=== PATIENT | female | born 1960 | race Caucasian/White ===

== ENCOUNTER → 2019-01-28 | Outpatient (REF) | payer OTHER ==
[2019-02-03 14:09] LABS: HPV HYBRID CAPTURE II Negative (Negative)
== END ==
LOC: M LAB LCGH 11:32
PROVIDERS: ATTEND Nurse Practitioner Adult Health
DX: Z12.4 Encounter for screening for malignant neoplasm of cervix (principal); R87.610 Atypical squamous cells of undetermined significance on cytologic smear of cervix (ASC-US); N85.8 Other specified noninflammatory disorders of uterus

== ENCOUNTER → 2019-07-01 | Outpatient (REF) | LOC: M LAB LCGH 14:05 | PROVIDERS: ATTEND Physician Assistant | DX: L57.0 Actinic keratosis (principal); D22.5 Melanocytic nevi of trunk ==

== ENCOUNTER → 2021-07-23 | Outpatient (CLI) | payer OTHER ==
[~2021-07-23] MED LIST: D31000TA2 PO; ESTR1TAB PO; PROG1CAP8 PO; VITA-243 PO
== END ==
LOC: M LABSMTC 10:49
PROVIDERS: ATTEND Anesthesiology
DX: Z01.812 Encounter for preprocedural laboratory examination (principal); Z20.822 Contact with and (suspected) exposure to COVID-19

== ENCOUNTER 2021-07-27 06:52 | Day surgery (SDC) | payer OTHER ==
[~2021-07-27] VITALS: Ht 160 cm; Wt 49.0 kg
[~2021-07-27 06:52] MED LIST changes: +NS 1,000 ML IV ONE
--- OUTSIDE RECORDS SUMMARY | 2021-07-27 06:58 | CCD | Continuity of Care Document ---
Author Author Cristóbal MELÉNDEZ [facility] Organization Unknown Address [address], [address] [place] [address] Phone [phone] Care Team Providers Care Department Head Name Role Phone Nixon Hunter M.D. AUTM [phone] Problems Description No Active Problems Social History Type Date Description Comments Sex Unknown ETOH Use 2-3 A Week Tobacco Use Start: Unknown Light tobacco smoker (10 or fewe r cigarettes/day) 1-2 packs per week Allergies and adverse reactions Description No Known Drug Allergies Medications Active Medications SIG Qnty Indications Ordering Provide r Date Miralax 17GM/Scoop Powder use as instructed by doctor for bowel prep 510gm R19.5 Damien Gorman MD 06/15/[address] take 4 tabs by mouth prior to procedure per instructions. 4tabs R19.5 Damien Gorman MD 06/15/2021 Progesterone 100mg Capsules D aily Unknown Estradiol 0.5mg Tablets once daily Unknown Vitamin D3 Maximum Strength 125mcg (5000 Ut) Capsules Daily Unknown Vitamin C 500mg Tablets Daily Unknown Tums Ultra 1000 1000mg Chewtabs 2 Daily Unknown Immunizations Description No Information Available Vital Signs Date Vital Result Comment 06/15/2021 9:18am BP Systolic 128 mmHg BP Diastolic 84 mmHg Height 63 inches 5'3" Weight 115.00 lb BMI (Body Mass Index) 20.4 kg/m2 [place] Body Weight 115 lb Weight 52.164 kg BSA (Body Surface Area) 1.53 m2 Results Test Acquired Date Facility Test Result H/L Range Note CBC With Auto Diff 06/18/2021 [facility] [address] [place] [address] [phone] WBC # Bld Auto 6.7 10*3/uL Normal 4.45-10.71 1 RBC # Bld Auto 4.45 10*6/uL Normal 4.20-5.40 Hgb Bld-sCnc 14.8 g/dL Normal 10.7-15.4 Hct VFr Bld Auto 43.2 % Normal 37-47 MCV BldCo Auto 97 fL High 80-96 MCH RBC Qn Auto 33 pg High 27-31 MCHC BldCo-mCnc 34 g/dL Normal 33-37 RDW RBC Auto 13 % Normal 11-15 Platelet # Bld Auto 323 10*3/uL Normal 130-472 PMV Bld 9.1 fL Normal 9.1-13.1 Neutrophils/leuk NFr Bld Auto 56.8 % Normal 41-77 Neutrophils # Bld Auto 3.8 U Normal 1.7-7.6 Lymphocytes/leuk NFr Bld Auto 34.4 % Normal 14-46 Lymphocytes # Bld Auto 2.3 U Normal 0.6-4.6 Monocytes/leuk NFr Bld Auto 6.9 % Normal 4-12 Monocytes # Bld Auto 0.5 U Normal 0.2-1.2 Eosinophil/leuk NFr Bld Auto 0.9 % Normal 0-7 Eosinophil # Bld Auto 0.1 U Normal 0.0-0.5 Basophils/leuk NFr Bld Auto 0.6 % Normal 0.4-1.3 Basophils # Bld Auto 0.0 U Normal 0.0-0.2 Nucleated Red Blood Cell 0 % Nucleated Red Blood Cell# 0 U Imm Granulocytes Bld Ql Auto 0.4 Normal 0-2 Imm Granulocytes # Bld Auto 0.0 U Normal 0-0.1 Manual diff Bld NO 2 1 R19.5 2 06/29/21 (FriJun 29) 02:19 P M KATERINE MELÉNDEZ No anemia noted. Procedures Description No Information Available Medical Devices Description No Information Available Encounters Description No Information Available Assessments Date Code Description Provider 06/15/2021 R19.5 Other fecal abnormalities DEVAUGHN Allen Plan of Treatment 06/15/2021 - DEVAUGHN Vigil* R19.5 Other fecal abnormalities * * New Medication:* Miralax 17 GM/Scoop * Dulcolax 5 mg * New Labs:* Complete Blood Count, Ordered: 06/15/21 * New Orders:* Colonoscopy, Ordered: 06/15/21 * Comments:* Will arrange for colonoscopy. Reviewed risks and benefits of the procedure, as well as other options, with the patient. Bowel prep procedure was discussed with patient, as well as risks and side effects associated with the bowel prep. Patient verbalized understanding of all of the above and is in agreement to proceed. Patient will seek medical attention for any acute changes. Will monitor. * Follow up:* As scheduled, sooner if needed. Functional Status Description No Information Available Mental Status Description No Information Available Referrals Refer to Reason for Referral Status Appt Date Antolin Magdaleno M.D. [employer]IT[employer] Scheduled 06/15/2021 [facility] [address], [address] [place], [place] [id number] [phone]
--- OUTSIDE RECORDS SUMMARY | 2021-07-27 06:58 | CCD ---
Author Author [facility] Organization [facility] Address Unknown Phone Unavailable Care Team Providers Care [employer]sembler [employer] Name Role Phone Charlebois, A Juli RPA C Unavailable Unavailable Charlebois, A Juli RPA C Unavailable Unavailable Charlebois, A Juli RPA C Unavailable Unavailable Charlebois, A Juli RPA C Unavailable Unavailable Charlebois, A Juli RPA C Unavailable Unavailable Charlebois, A Juli RPA C Unavailable Unavailable Charlebois, A Juli RPA C Unavailable Unavailable Charlebois, A Juli RPA C Unavailable Unavailable Charlebois, A Juli RPA C Unavailable Unavailable Charlebois, A Juli RPA C Unavailable Unavailable Charlebois, A Juli RPA C Unavailable Unavailable Charlebois, A Juli RPA C Unavailable Unavailable Charlebois, A Juli RPA C Unavailable Unavailable Charlebois, A Juli RPA C Unavailable Unavailable Charlebois, A Juli RPA C Unavailable Unavailable Charlebois, A Juli RPA C Unavailable Unavailable Charlebois, A Juli RPA C Unavailable Unavailable Charlebois, A Juli RPA C Unavailable Unavailable Charlebois, A Juli RPA C Unavailable Unavailable Charlebois, A Juli RPA C Unavailable Unavailable Charlebois, A Juli RPA C Unavailable Unavailable Charlebois, A Juli RPA C Unavailable Unavailable Charlebois, A Juli RPA C Unavailable Unavailable Charlebois, A Juli RPA C Unavailable Unavailable Charlebois, A Juli RPA C Unavailable Unavailable Charlebois, A Juli RPA C Unavailable Unavailable Charlebois, A Juli RPA C Unavailable Unavailable Charlebois, A Juli RPA C Unavailable Unavailable Charlebois, A Juli RPA C Unavailable Unavailable Charlebois, A Juli RPA C Unavailable Unavailable Charlebois, A Juli RPA C Unavailable Unavailable Charlebois, A Juli RPA C Unavailable Unavailable Charlebois, A Juli RPA C Unavailable Unavailable Doctor Provided, Family PHYS No Family Unavailable U navailable Hunter II, A Nixon LIEBERMAN Unavailable Unavailable Hunter II, A Nixon LIEBERMAN Unavailable Unavailable Hunter II, A Nixon LIEBERMAN Unavailable Unavailable Hunter II, A Nixon LIEBERMAN Unavailable Unavailable Hunter II, A Nixon LIEBERMAN Unavailable Unavailable Hunter II, A Nixon LIEBERMAN Unavailable Unavailable Hunter II, A Nixon LIEBERMAN Unavailable Unavailable Hunter II, A Nixon LIEBERMAN Unavailable Unavailable Hunter II, A Nixon LIEBERMAN Unavailable Unavailable Hunter II, A Nixon LIEBERMAN Unavailable Unavailable Hunter II, A Nixon LIEBERMAN Unavailable Unavailable Hunter II, A Nixon LIEBERMAN Unavailable Unavailable Hunter II, A Nixon LIEBERMAN Unavailable Unavailable Hunter II, A Nixon LIEBERMAN Unavailable Unavailable Hunter II, A Nixon LIEBERMAN Unavailable Unavailable Hunter II, A Nixon LIEBERMAN Unavailable Unavailable Hunter II, A Nixon LIEBERMAN Unavailable Unavailable Hunter II, A Nixon LIEBERMAN Unavailable Unavailable Hunter II, A Nixon LIEBERMAN Unavailable Unavailable Hunter II, A Nixon LIEBERMAN Unavailable Unavailable Hunter II, A Nixon LIEBERMAN Unavailable Unavailable Hunter II, A Nixon LIEBERMAN Unavailable Unavailable Hunter II, A Nixon MD Unavailable Unavailable Hunter II, A Nixon MD Unavailable Unavailable Hunter II, A Nixon MD Unavailable Unavailable Hunter II, A Nixon MD Unavailable Unavailable Hunter II, A Nixon MD Unavailable Unavailable Hunter II, A Nixon MD Unavailable Unavailable Hunter II, A Nixon MD Unavailable Unavailable Hunter II, A Nixon MD Unavailable Unavailable Hunter II, A Nixon MD Unavailable Unavailable Hunter II, A Nixon MD Unavailable Unavailable Hunter II, A Nixon MD Unavailable Unavailable Hunter II, A Nixon MD Unavailable Unavailable Hunter II, A Nixon MD Unavailable Unavailable Hunter II, A Nixon MD Unavailable Unavailable Hunter II, A Nixon MD Unavailable Unavailable Hunter II, A Nixon MD Unavailable Unavailable Hunter II, A Nixon MD Unavailable Unavailable Hunter II, A Nixon MD Unavailable Unavailable Hunter II, A Nixon MD Unavailable Unavailable Hunter II, A Nixon MD Unavailable Unavailable Hunter II, A Nixon MD Unavailable Unavailable Hunter II, A Nixon MD Unavailable Unavailable Hunter II, A Nixon MD Unavailable Unavailable Hunter II, A Nixon MD Unavailable Unavailable Hunter II, A Nixon MD Unavailable Unavailable Hunter II, A Nixon MD Unavailable Unavailable Hunter II, A Nixon MD Unavailable Unavailable Hunter II, A Nixon MD Unavailable Unavailable Hunter II, A Nixon MD Unavailable Unavailable Hunter II, A Nixon MD Unavailable Unavailable Hunter II, A Nixon MD Unavailable Unavailable Hunter II, A Nixon MD Unavailable Unavailable Hunter II, A Nixon MD Unavailable Unavailable Hunter II, A Nixon MD Unavailable Unavailable Re-disclosure Warning The records that you are about to access may contain information from federally-assisted alcohol or drug abuse programs. If such information is present, then the following federally mandated warning applies: This information has been disclosed to you from records protected by federal confidentiality rules (42 CFR part 2). The federal rules prohibit you from making any further disclosure of this information unless further disclosure is expressly permitted by the written consent of the person to whom it pertains or as otherwise permitted by 42 CFR part 2. A general authorization for the release of medical or other information is NOT sufficient for this purpose. The Federal rules restrict any use of the information to criminally investigate or prosecute any alcohol or drug abuse patient.The records that you are about to access may contain highly sensitive health information, the redisclosure of which is protected by Article 27-F of the [facility] Public Health law. If you continue you may have access to information: Regarding HIV / AIDS; Provided by facilities licensed or operated by the [facility] Office of Mental Health; or Provided by the [facility] Office for People With Developmental Disabilities. If such information is present, then the following [facility] mandated warning applies: This information has been disclosed to you from confidential records which are protected by state law. State law prohibits you from making any further disclosure of this information without the specific written consent of the person to whom it pertains, or as otherwise permitted by law. Any unauthorized further disclosure in violation of state law may result in a fine or correction sentence or both. A general authorization for the release of medical or other information is NOT sufficient authorization for further disc losure. Allergies and Adverse Reactions Type Description Substance Reaction Status Data Source(s ) Drug allergy No Known Drug Allergies No Known Drug Allergies [facility] Family History Family Member Name Family Member Gender Family Member Status Date o f Status Description Data Source(s) Unknown Condition [facility] Unknown Condition [facility] Unknown Condition [facility] Unknown Condition [facility] Unknown Condition [facility] Unknown Condition [facility] Unknown Condition [facility] Condition [facility] Unknown Condition [facility] Condition [facility] Condition [facility] Unknown Condition [facility] Unknown Condition [facility] Unknown Condition [facility] Unknown Condition [facility] Encounters Encounter Providers Location Date Indications Data Source(s ) Outpatient Attender: Juli Holcomb 2020 08:15:00 AM EDT R19.5 [facility] R19.5 Outpatient Attender: Nixon Hunter II 04/05/2021 0 7:25:00 AM EDT SCREENING, DENSE TISSUE [facility] SCREENING, DENSE TISSUE Outpatient Attender: Nixon Hunter IIReferrer: No Family Doctor Provided 03/19/2021 10:46:00 AM EDT - 03/19/2021 12:04:00 PM EDT [facility] Immunizations Vaccine Date Status Description Data Source(s) COVID-19 VACCINE Moderna 11/03/2020 12:00:00 AM EST completed [facility] Vaccine Series Complete: YESThis Data wa s Submitted to [facility] Via [employer]. COVID-19 VACCINE Moderna 10/06/2020 12:00:00 AM EST completed [facility] Vaccine Series Complete: NOThis Data was Submitted to [facility] Via [employer]. IIV3. This is one of two codes replacing CVX 15, which is being retired. 06/14/2020 12:00:00 AM EDT completed [facility] Medications Medication Brand Name Start Date Product Form Dose Route Admi nistrative Instructions Pharmacy Instructions Status Indications Reaction Description Data Source(s) 17 gram/dose 06/17/2021 12:00:00 AM EDT powder 510 TAKE BY MOUTH INSTRUCTED BY DOCTOR FOR BOWEL PREP TAKE BY MOUTH INSTRUCTED BY DOCTOR FO Robin BOWEL PREP SOLD: 06/19/2021 [facility] Bisacodyl 5 MG Delayed Release Oral Tablet [Dulcolax] Dulcol ax 06/15/2021 12:00:00 AM EDT ORAL active [facility] ([facility], ) POLYETHYLENE GLYCOL 3350 142 MG/ML Oral Solution [Miralax] M iralax 06/15/2021 12:00:00 AM EDT active [facility] ([facility], ) 100 mg 05/02/2021 12:00:00 AM EDT capsule 30 TAKE ONE CAPSULE BY MOUTH EVERY DAY AT BEDTIME ALONG WITH ESTRADIOL DIRECTED TAKE ONE CAPSULE BY MOUTH EVERY DAY AT BEDTIME ALONG WITH ESTRADIOL DIRECTED SOLD: 07/04/2021 [facility] 100 mg 05/02/2021 12:00:00 AM EDT capsule 30 TAKE ONE CAPSULE BY MOUTH EVERY DAY AT BEDTIME ALONG WITH ESTRADIOL DIRECTED TAKE ONE CAPSULE BY MOUTH EVERY DAY AT BEDTIME ALONG WITH ESTRADIOL DIRECTED SOLD: 06/05/2021 [facility] 100 mg 05/02/2021 12:00:00 AM EDT capsule 30 TAKE ONE CAPSULE BY MOUTH EVERY DAY AT BEDTIME ALONG WITH ESTRADIOL DIRECTED TAKE ONE CAPSULE BY MOUTH EVERY DAY AT BEDTIME ALONG WITH ESTRADIOL DIRECTED SOLD: 05/06/2021 [facility] 0.5 mg 04/23/2021 12:00:00 AM EDT tablet 30 TAKE ONE TABLET BY MOUTH EVERY DAY ALONG WITH PROMETRIUM AT BEDTIME DIRECTED TAKE ONE TABLET BY MOUTH EVERY DAY ALONG WITH PROMETRIUM AT BEDTIME DIRECTED SOLD: 05/06/2021 [facility] 0.5 mg 04/23/2021 12:00:00 AM EDT tablet 30 TAKE ONE TABLET BY MOUTH EVERY DAY ALONG WITH PROMETRIUM AT BEDTIME DIRECTED TAKE ONE TABLET BY MOUTH EVERY DAY ALONG WITH PROMETRIUM AT BEDTIME DIRECTED SOLD: 07/04/2021 [facility] 0.5 mg 04/23/2021 12:00:00 AM EDT tablet 30 TAKE ONE TABLET BY MOUTH EVERY DAY ALONG WITH PROMETRIUM AT BEDTIME DIRECTED TAKE ONE TABLET BY MOUTH EVERY DAY ALONG WITH PROMETRIUM AT BEDTIME DIRECTED SOLD: 06/05/2021 [facility] bazedoxifene 20 MG / Estrogens, Conjugat ed (RETIREMENT) 0.45 MG Oral Tablet Conj Estrogens-Bazedoxifene (Duavee) 0.45-20 mg tablet Conj Estrogens-Bazedoxifene (Duavee) 0.45-20 mg tablet 03/19/2021 11:44:19 AM EDT 1 TAB active [facility] Estrogens, Conjugated (RETIREMENT) 0.45 MG / me droxyprogesterone acetate 1.5 MG Oral Tablet Conj Estrog-Medroxyprogest Vito (Prempro) 0.45-1.5 mg tablet Conj Estrog- Medroxyprogest Vito (Prempro) 0.45-1.5 mg tablet 03/19/2021 11:23:26 AM EDT 1 TAB active [facility] Estrogens, Conjugated (RETIREMENT) 0.45 MG / me droxyprogesterone acetate 1.5 MG Oral Tablet Conj Estrog-Medroxyprogest Vito (Prempro) 0.45-1.5 mg tablet Conj Estrog- Medroxyprogest Vito (Prempro) 0.45-1.5 mg tablet 09/12/2020 09:57:06 AM EST 1 TAB completed [facility] PREMPRO 0.45/1.5 28 Day Pack 0.45-1.5 mg ESTROGEN,CON/M-PROG EST ACET 09/12/2020 12:00:00 AM EST tablet 28 TAKE ONE TABLET BY MOUTH EVERY DAY TAKE ONE TABLET BY MOUTH EVERY DAY SOLD: 12/21/2020 [facility] PREMPRO 0.45/1.5 28 Day Pack 0.45-1.5 mg ESTROGEN,CON/M-PROG EST ACET 09/12/2020 12:00:00 AM EST tablet 28 TAKE ONE TABLET BY MOUTH EVERY DAY TAKE ONE TABLET BY MOUTH EVERY DAY SOLD: 01/21/2021 [facility] PREMPRO 0.45/1.5 28 Day Pack 0.45-1.5 mg ESTROGEN,CON/M-PROG EST ACET 09/12/2020 12:00:00 AM EST tablet 28 TAKE ONE TABLET BY MOUTH EVERY DAY TAKE ONE TABLET BY MOUTH EVERY DAY SOLD: 02/21/2021 [facility] PREMPRO 0.45/1.5 28 Day Pack 0.45-1.5 mg ESTROGEN,CON/M-PROG EST ACET 09/12/2020 12:00:00 AM EST tablet 28 TAKE ONE TABLET BY MOUTH EVERY DAY TAKE ONE TABLET BY MOUTH EVERY DAY SOLD: 03/26/2021 [facility] 0.45-1.5 mg 09/12/2020 12:00:00 AM EST tablet 28 TAKE ONE TABLET BY MOUTH EVERY DAY TAKE ONE TABLET BY MOUTH EVERY DAY SOLD: 09/14/2020 [facility] Estrogens, Conjugated (RETIREMENT) 0.45 MG / me droxyprogesterone acetate 1.5 MG Oral Tablet Conj Estrog-Medroxyprogest Vito (Prempro) 0.45-1.5 mg tablet Conj Estrog- Medroxyprogest Vito (Prempro) 0.45-1.5 mg tablet 02/28/2020 11:41:52 AM EDT 1 TAB completed [facility] 0.45-1.5 mg 02/28/2020 12:00:00 AM EDT tablet 28 TAKE ONE TABLET BY MOUTH EVERY DAY TAKE ONE TABLET BY MOUTH EVERY DAY SOLD: 08/15/2020 [facility] 0.45-1.5 mg 02/28/2020 12:00:00 AM EDT tablet 28 TAKE ONE TABLET BY MOUTH EVERY DAY TAKE ONE TABLET BY MOUTH EVERY DAY SOLD: 06/11/2020 [facility] 0.45-1.5 mg 02/28/2020 12:00:00 AM EDT tablet 28 TAKE ONE TABLET BY MOUTH EVERY DAY TAKE ONE TABLET BY MOUTH EVERY DAY SOLD: 07/18/2020 [facility] bazedoxifene 20 MG / Estrogens, Conjugat ed (RETIREMENT) 0.45 MG Oral Tablet Conj Estrogens-Bazedoxifene (Duavee) 0.45-20 mg tablet Conj Estrogens-Bazedoxifene (Duavee) 0.45-20 mg tablet 01/28/2020 11:28:35 AM EDT 0 completed [facility] Insurance Providers Payer name Policy type / Coverage type Policy ID Covered republican ID Covered republican's relationship to null Policy Null Plan Information [facility] [place] [id number] SP [id number] [facility] [place] [id number] SP [id number] [facility]AN [facility] [place] [id number] SP [id number] [employer] Other 0 [id number] Self 0 [employer] Other 0 [id number] Self 0 Problems, Conditions, and Diagnoses No Information Surgeries/Procedures No Information Results ID Date Data Source [id number] 07/23/2021 11:05:00 AM EST [facility] Name Value Range Interpretation Code Description Data La rce(s) Supporting Document(s) SARS-CoV-2 (COVID-19) RNA [Presence] in Respiratory specimen by JESUS with probe detection Not Detected [facility] This lab was ordered by [facility] and reported by [employer]. ID Date Data Source [id number] 06/18/2021 08:43:00 AM EDT [facility] Name Value Range Interpretation Code Description Data La rce(s) Supporting Document(s) Leukocytes [#/volume] in Blood by Automated count 6.7 10*3/uL 4.45-10 .71 N [facility] Erythrocytes [#/volume] in Blood by Automated count 4.45 10*6/uL 4.20 -5.40 N [facility] Hemoglobin [Moles/volume] in Blood 14.8 g/dL 10.7-15.4 N [facility] Hematocrit [Volume Fraction] of Blood by Automated count 43.2 % 3 7-47 N [facility] Erythrocyte mean corpuscular volume [Ent itic volume] in Cord blood by Automated count 97 fL 80-96 Above high normal [facility] Erythrocyte mean corpuscular hemoglobin [Entitic mass] by Au tomated count 33 pg 27-31 Above high normal [facility] Erythrocyte mean corpuscular hemoglobin concentration [Mass/volume] in Cord blood 34 g/dL 33-37 N [facility] Erythrocyte distribution width [Entitic volume] by Automated count 13 % 11-15 N [facility] Platelets [#/volume] in Blood by Automated count 323 10*3/uL 130-472 N [facility] Platelet mean volume [Entitic volume] in Blood 9.1 fL 9.1-13.1 N [facility] Neutrophils/100 leukocytes in Blood by Automated count 56.8 % 41- 77 N [facility] Neutrophils [#/volume] in Blood by Automated count 3.8 U 1.7-7.6 N [facility] Lymphocytes/100 leukocytes in Blood by Automated count 34.4 % 14- 46 N [facility] Lymphocytes [#/volume] in Blood by Automated count 2.3 U 0.6-4.6 N [facility] Monocytes/100 leukocytes in Blood by Automated count 6.9 % 4-12 N [facility] Monocytes [#/volume] in Blood by Automated count 0.5 U 0.2-1.2 N [facility] Eosinophils/100 leukocytes in Blood by Automated count 0.9 % 0-7 N [facility] Eosinophils [#/volume] in Blood by Automated count 0.1 U 0.0-0.5 N [facility] Basophils/100 leukocytes in Blood by Automated count 0.6 % 0.4-1 .3 N [facility] Basophils [#/volume] in Blood by Automated count 0.0 U 0.0-0.2 N [facility] NUCLEATED RED BLOOD CELL 0 % [facility] NUCLEATED RED BLOOD CELL# 0 U [facility] Immature granulocytes [Presence] in Blood by Automated count 0-2 N [facility] Immature granulocytes [#/volume] in Blood by Automated count 0.0 U 0-0.1 N [facility] Manual Differential panel - Blood NO [facility] ID Date Data Source [id number] 06/18/2021 08:27:00 AM EDT [facility] ([facility], ) Name Value Range Interpretation Code Description Data La rce(s) Supporting Document(s) Erythrocytes [#/volume] in Blood by Automated count 4.45 10*6/uL 4.20-5.40 Normal (applies to non-numeric results) MARGARITA ([facility]) R19.5 Leukocytes [#/volume] in Blood by Automated count 6.7 10*3/uL 4.45-10.71 Normal (applies to non-numeric results) [facility] ([facility]) R19.5 Hematocrit [Volume Fraction] of Blood by Automated count 43.2 % 37-47 Normal (applies to non-numeric results) [facility] ([facility]) R19.5 Erythrocyte mean corpuscular volume [Ent itic volume] in Cord blood by Automated count 97 fL 80-96 Above high normal [facility] ([facility]) R19.5 Hemoglobin [Moles/volume] in Blood 14.8 g/dL 10.7-15.4 Normal (applies to non- numeric results) [facility] ([facility]) R19.5 Erythrocyte mean corpuscular hemoglobin [Entitic mass] by Au tomated count 33 pg 27-31 Above high normal [facility] ([facility]) R19.5 Erythrocyte distribution width [Entitic volume] by Automated cou nt 13 % 11-15 Normal (applies to non-numeric results) [facility] ([facility]) R19.5 Erythrocyte mean corpuscular hemoglobin concentration [Mass/volume] in Cord blood 34 g/dL 33-37 Normal (applies to non-numeric results) [facility] ([facility]) R19.5 Platelets [#/volume] in Blood by Automated count 323 10*3/uL 130-472 Normal (applies to non-numeric results) [facility] ([facility]) R19.5 Platelet mean volume [Entitic volume] in Blood 9.1 fL 9 .1-13.1 Normal (applies to non-numeric results) [facility] ([facility]) R19.5 Neutrophils/100 leukocytes in Blood by Automated count 56.8 % 41-77 Normal (applies to non-numeric results) [facility]) R19.5 Lymphocytes/100 leukocytes in Blood by Automated count 34.4 % 14-46 Normal (applies to non-numeric results) [facility] ([facility]) R19.5 Lymphocytes [#/volume] in Blood by Automated count 2.3 U 0.6-4.6 Normal (applies to non-numeric results) [facility] ([facility]) R19.5 Neutrophils [#/volume] in Blood by Automated count 3.8 U 1.7-7.6 Normal (applies to non-numeric results) [facility] ([facility]) R19.5 Monocytes [#/volume] in Blood by Automated count 0.5 U 0.2-1.2 Normal (applies to non-numeric results) [facility] ([facility]) R19.5 Eosinophils/100 leukocytes in Blood by Automated count 0.9 % 0-7 Normal (applies to non-numeric results) [facility] ([facility]) R19.5 Monocytes/100 leukocytes in Blood by Automated count 6.9 % 4-12 Normal (applies to non-numeric results) [facility] ([facility]) R19.5 Basophils [#/volume] in Blood by Automated count 0.0 U 0.0-0.2 Normal (applies to non-numeric results) [facility] ([facility]) R19.5 Basophils/100 leukocytes in Blood by Automated count 0.6 % 0.4-1.3 Normal (applies to non-numeric results) [facility] ([facility]) R19.5 Eosinophils [#/volume] in Blood by Automated count 0.1 U 0.0-0.5 Normal (applies to non-numeric results) [facility] ([facility]) R19.5 Immature granulocytes [Presence] in Blood by Automated count 0.4 0-2 Normal (applies to non-numeric results) [facility] ([facility]) R19.5 Nucleated Red Blood Cell 0 % [facility] ([facility]) R19.5 Laboratory test finding (navigational concept) 0 U [facility] ([facility]) R19.5 Immature granulocytes [#/volume] in Blood by Automated count 0.0 U 0-0.1 Normal (applies to non-numeric results) [facility] ([facility]) R19.5 Manual Differential panel - Blood Laboratory test result [facility] ([facility], ) R19.5 ID Date Data Source [id number] 04/05/2021 08:50:00 AM EDT [facility] [address] [place] [address] [phone] NAME SEX PT STATUS ACCOUNT NUMBER Cristóbal Grover REG REF [id number] ORDERING PHYSICIAN LOCATION MEDICAL RECORD NO. Nixon Hunter II, MD MAMMO [id number] ATTENDING PHYSICIAN DATE OF DATE OF EXAM/TIME PatoGeena BETHANY 1960 04/05/21723 TYPE / EXAM 3D DIG MAMMO SCREEN BILAT REASON FOR EXAM Screening for breast cancer LAST CLINICAL BREAST EXAM: 02/2021 F[age] YEAR RISK: 5.8% LIFETIME RISK: 29.5% FAMILY HISTORY OF BREAST CARCINOMA: Mother COMPARISON: March 30, 2020 2D bilateral digital mammogram in the CC and MLO projections was performed with supplemental 3D tomosynthesis of both breasts. Bilateral screening breast ultrasound was also performed. FINDINGS: Craniocaudad and oblique lateral views of the breasts were obtained. The breasts are heterogeneously dense Biopsy marking clip is seen on the right. No distortion masses or suspicious calcifications are identified bilaterally Bilateral breast ultrasound does not show any masses or cystic changes. IMPRESSION: No mammographic or sonographic evidence of malignancy. Yearly screening recommended. OVERALL FINAL ASSESSMENT OF FINDINGS BI-RADS 2 - Benign findings. OVERALL FINAL ASSESSMENT OF THE BREAST COMPOSITION Breast Density Classification: C Description: The breasts are heterogeneously dense, which may obscure small masses. Note: for findings of BIRADS 0, our office will contact the patient to arrange further mammographicand/or ultrasound imaging as needed. If MRI is recommended, this should be ordered and scheduled b y the ordering provider's office. This mammogram was read with the assistance of [employer], an FDA-approved computer-aided detection system for mammography. Reported By Tk Acevedo MD on 04/05/2161 Signed By Tk Acevedo MD on 04/05/2116 Date Time CC: Tk Acevedo M.D.; [place] [employer] IN[employer]IG[employer] Pato Techn: [id number] Trans Dt/Tm: Trans by: DT Prt Dt/Tm: 2020: Total DLP = 0.00 mGy-cm : Total Radiation Dose = 0.0000 mSv Lifetime Dose: 0 mSv Name Value Range Interpretation Code Description Data La rce(s) Supporting Document(s) ID Date Data Source [id number] 04/05/2021 08:50:00 AM EDT [facility] [address] [place] [address] [phone] NAME SEX PT STATUS ACCOUNT NUMBER Cristóbal Grover REG REF [id number] ORDERING PHYSICIAN LOCATION MEDICAL RECORD NO. Nixon Hunter II, MD MAMMO [id number] ATTENDING PHYSICIAN DATE OF DATE OF EXAM/TIME Geena Whyte NP 1960 04/05/21800 TYPE / EXAM US Breast - Complete Bilat REASON FOR EXAM dense tissue LAST CLINICAL BREAST EXAM: 02/2021 FIVE YEAR RISK: 5.8% LIFETIME RISK: 29.5% FAMILY HISTORY OF BREAST CARCINOMA: Mother COMPARISON: March 30, 2020 2D bilateral digital mammogram in the CC and MLO projections was performed with supplemental 3D tomosynthesis of both breasts. Bilateral screening breast ultrasound was also performed. FINDINGS: Craniocaudad and oblique lateral views of the breasts were obtained. The breasts are heterogeneously dense Biopsy marking clip is seen on the right. No distortion masses or suspicious calcifications are identified bilaterally Bilateral breast ultrasound does not show any masses or cystic changes. IMPRESSION: No mammographic or sonographic evidence of malignancy. Yearly screening recommended. OVERALL FINAL ASSESSMENT OF FINDINGS BI-RADS 2 - Benign findings. OVERALL FINAL ASSESSMENT OF THE BREAST COMPOSITION Breast Density Classification: C Description: The breasts are heterogeneously dense, which may obscure small masses. Note: for findings of BIRADS 0, our office will contact the patient to arrange further mammographicand/or ultrasound imaging as needed. If MRI is recommended, this should be ordered and scheduled by the ordering provider's office. This mammogram was read with the assistance of Leon, an FDA-approved computer-aided detection system for mammography. Reported By Tk Acevedo MD on 04/05/21 0850 Signed By Tk Acevedo MD on 04/05/21 0852 Date Time CC: Tk Acevedo M.D.; Geena HOWE Pato Techn: BUSMI Trans Dt/Tm: Trans by: DT Prt Dt/Tm: : Total DLP = 0.00 mGy-cm : Total Radiation Dose = 0.0000 mSv Lifetime Dose: 0 mSv Name Value Range Interpretation Code Description Data La rce(s) Supporting Document(s) ID Date Data Source [id number] 03/19/2021 11:04:00 AM EDT [facility] Patient Name: Cristóbal Grover : 1960 Sex: F Pt Unit #: [id number] Location:[facility] Provider: Visit Date/Time: 03/19/21 Primary Insurance: [facility] Secondary Insurance: Self Pay Intake Vital Signs 03/19/21 11:19 Current Height 5 ft 3 in Current Weight 114 lb BMI 20.2 BP 122/68 Blood Pressure Location Rt brachial Position Sitting Respiration 18 Pulse 76 Temp 96.8 F L Pulse Oximetry (%) 98 Oxygen Delivery Method room air 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 LMP was 07/05/14, Mammogram 03/30/20, and Last pap 01/29/19 ascus HPV -. Today she has no complaints. After review of medication patient is taking prempo but only taking 1/2 tab. Back in 02/2020 she was taking Dauvee but the pharmacy was not able to get the dauvee she was switched to prempo she attempted to take a whole pill but began spotting she discontinued the prempro for a short time but hot flashes came back. She currently is taking the prempo 1/2 tab po daily but if able would like to go back on Dauvee. Is patient in pain?: No Allergies No Known Drug Allergies Allergy (Verified 03/19/21 11:46) Medications - Last Reconciled 03/19/21 by Nixon Hunter II, MD ascorbic acid (vitamin C) (Vitamin C) 500 mg PO DAILY conj estrog- medroxyprogest vito 0.45-1.5 mg (Prempro) 1 tab PO QDAY conj estrogens- bazedoxifene 0.45-20 mg (Duavee) 1 tab PO QAM multivitamin (Daily Multi-Vi tamin) 1 ea PO DAILY Post menopausal: Yes Fall Risk History of falls: No HIV Testing Offer - ages 13-64 Requirement for HIV testing offer been met?: Declines today. 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 History Menstrual History Hx Age of Menarche: 15 Perimenopause/Menopause Menopause type: natural (07/05/14) Menopause concerns/symptoms: Reports hot flashes Urogynecologic symptoms: Reports continence Contraception control method: none Cervical and Vaginal Cytology STD Screening: No Data to Display Sexual History Sexually active: Yes Do you think of yourself as: straight/heterosexual History History 3 Number of Living Children Hx # Term Pregnancies 3 Hx # Pregnancies Hx Total # of Abortions (Spontaneous Elective) Ectopic pregnancies PFSH Medical History (Updated 03/19/21 @ 12:13 by Nixon Huntre II, MD) Actinic Cheilitis Left lower lip Actinic keratoses Actinic Keratosis Actinic keratosis Basal Cell Carcinoma Right Upper Chest Bilateral fibrocystic breast disease (FCBD) History of basal cell carcinoma Irritated nevus of abdominal wall Menopause syndrome Neoplasm of uncertain behavior of skin Postmenopausal HRT (hormone replacement therapy) Seborrheic keratoses Seborrheic Keratosis Skin cancer screening Solar lentiginosis Surgical History Back Surgery History of - surgery History of - surgery Family History Other Bladder cancer Diabetes FHx: breast cancer in first degree relative Lymphocytic leukemia Parkinsons Social History Does the Patient have a Healthcare Proxy: No Does Patient have a DNR?: No Does Patient have a Living Will?: No adopted: No household members: none housing: house marital status: number of children: 3 number of grandchildren: 2 highest education level completed: some college, no degree current occupational status: employed 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 pets and animals: No Hx Recent Travel (where): No sexually active: Yes do you think of yourself as: straight/heterosexual current gender identity: female well-balanced diet: about half the time caffeine: Yes Type: coffee Number of servings: 1 high-fat food intake: 0-1 times daily daily servings fruits/ve-4 daily servings of milk/calcium: 0-1 eating out: 1-3 times/week reads food labels: usually or always what type of physical activity do you participate in?: walking and running frequency: 3-4 times per week Smoking Status: Current every day smoker quit status: considering quitting alcohol intake: current alcohol intake frequency: a few times a week Alcohol type: wine substance use type: does not use seatbelt use: always helmet use: No drive intox or ride w/ intox local company 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: No working smoke detector in home: Yes fire extinguisher in home: Yes carbon monox detector in home: No firearms in home: No victim of physical abuse: No victim of emotional abuse: No victim of sexual abuse: No additional social history: Advanced Directives- answered "no" to all is not an organ donor Sickle cell Sickle Cell Screening:: Not indicated Female Reproductive History Menstrual Age of Menarche: 15 control method: none Menopause type: natural (07/05/14) Total pregnancies: 3 HPI Additional HPI HPI Details: here for annual,wants to go back on Duavee which she tolerated better no doing as well withPrempro which she has to cut in half to tolerate. Did not do well with either Maderna shot. due for colon cancer screen and mammogram. 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 Denies any post menopausal bleeding on current HRTx Urogynecologic symptoms: Reports continence Menopause concerns/symptoms: Reports hot flashes Other pertinent information: Here for annual exam no significant changes in health Review of Systems Const All systems reviewed are unremarkable except as noted in HPI and below Reports as per HPI, Reports system reviewed and no additional complaints, except as documented, Denies difficulty sleeping, Denies fatigue, Denies headache(s), Denies weight gain and Denies weightloss Eyes Reports as per HPI, Reports system reviewed and no additional complaints, except as documen helena, Denies change in vision and Denies loss of vision ENT Reports system reviewed and no additional complaints, except as documented, Reports as per HPI, Denies change in voice, Denies vertigo, Denies dizziness, Denies headache(s) and Reports hearing loss Card Reports as per HPI, Reports system reviewed and no additional complaints, except as documented, Denies chest pain, Denies irregular heart rhythm and Denies dyspnea Resp Reports as per HPI, Reports system reviewed and no additional complaints, except as documented and Denies dyspnea GI Reports as per HPI, Reports system reviewed and no additional complaints, except as documented, Denies abdominal pain, Denies change in bowel habits, Denies constipation, Denies nausea and Denies vomiting Genitourinary: Reports system reviewed and no additional complaints, except as documented, as per HPI, amenorrhea and hot flashes; Denies nipple discharge Musc Reports system reviewed and no additional complaints, except as documented and Reports as per HPI Skin/Breast Reports system reviewed and no additional complaints, except as documented, Reports as per HPI, Denies acne, Denies breast mass, Denies change in breast shape, Denies change in hair and Denies nipple discharge Details: FCB bilaterally Neuro Reports system reviewed and no additional complaints, except as documented, Reports as per HPI, Denies behavioral changes, Denies vertigo, Denies dizziness, Denies headache(s) and Denies loss of vision Psych Reports system reviewed and no additional complaints, except as documented, Reports as per HPI, Denies anxiety and Denies behavioral changes Endo Reports system reviewed and no additional complaints, except as documented, Reports as per HPI and Denies fatigue Champ/Lymph Reports system reviewed and no additional complaints, except as documented, Reports as per HPI, Reports easy bleeding and Reports easy bruising Aller/Immun Reports system reviewed and no additional complaints, except as documented and Reports as per HPI Exam Const General: cooperative, healthy appearing, comfortable, no acute distress, well developed and well groomed Nutritional Appearance: average body habitus and well nourished Orientation: alert, awake, oriented x3, oriented to person and oriented to place [facility] Head: normal to inspection Ears: hearing grossly normal bilaterally and external ears normal Other: mask for COVID Eyes General: appearance normal, both eyes and all related structures Alignment and Position: alignment normal Periorbital: periorbital findings normal Eyelids: eyelids normal Conjunctivae: conjunctivae normal Sclera: sclerae normal Pupils: PERRL EOM: EOM intact bilaterally Other: WEARS GLASSES Neck Neck: normal visual inspection Neck mass: No Thyroid: thyroid normal Chest Chest: normal inspection of the chest Breast/Axilla Inspection: normal inspection of the breasts and normal inspection of the axillae Breast/Axilla Palpation: normal palpation of the breasts, normal palpation of the axillae and no axillary lymphadenopathy Other: FCB BILATERALLY Resp Effort Inspection: normal respiratory effort Auscultation: clear to auscultation bilaterally Cardio Rate: regular rate Rhythm: regular rhythm GI Inspection: Yes normal to inspection Palpation: soft (NON TENDER) External Female Exam: normal external appearance and normal appearance of the urethra Urethra: normal appearance of the urethra Speculum Exam - Vagina: normal appearance of the vagina and normal vaginal discharge Speculum Exam - Cervix: normal appearance of the cervix Bimanual Exam- Vagina Uterus: normal bimanual exam, normal palpation and uterine size normal Bimanual Exam- Adnexa, other: normal adnexae and normal Pelvic Support: normal, no cystocele, no rectocele and no enterocele Musc Cervical Spine: normal cervical lordosis and cervical ROM normal Thoracic/Lumbar Spine: thoracic and lumbar spine normal to inspection and thoraco-lumbar ROM normal Skin Lesions: no lesions Rashes: no rashes Neuro General: patient alert, patient awake, patient oriented x3, gait normal, moves all extremities and no meningeal signs Cranial Nerves: sense of smell intact, PERRL, EOM intact bilaterally, hearing normal, able to rotatehead bilaterally and able to elevate shoulders bilaterally Cognition: normal cognition Speech: speech normal Gait: normal gait Motor: no movement abnormalities noted Extrem General: normal to inspection Psych Appearance: grossly normal and well kempt Assessment Plan Assessment Plan (1) Encounter for Routine Gynecological Examination: Code(s): Z01.419 - Encounter for gynecological examination (general) (routine) without abnormal findings Qualifiers: Gynecological examination findings: abnormal findings PRESENT Qualified Code(s): Z01.411 - Encounter for gynecological examination (general) (routine) with abnormal findings (2) Bilateral fibrocystic breast disease (FCBD): Status: Acute Code(s): N60.12 - Diffuse cystic mastopathy of left breast; N60.11 - Diffuse cystic mastopathy of right breast SNOMED Code(s): 24837684 Category: Medical (3) Menopause syndrome: Status: Acute Code(s): N95.1 - Menopausal and female climacteric states SNOMED Code(s): 568266136 Category: Medical Plan: will try Duavee or FemHrt daily (4) Screening breast examination: Status: Acute Code(s): Z12.39 - Encounter for other screening for malignant neoplasm of breast SNOMED Code(s): 257893916 Category: Medical Plan: mammogram (5) Postmenopausal HRT (hormone replacement therapy): Status: Acute Code(s): Z79.890 - Hormone replacement therapy SNOMED Code(s): 72712615 Category: Medical Plan: as noted above Orders: Orders 3D DIG MAMMO SCREEN BILAT 2 Months Z12.31 - Encounter for screening mammogram for malignant neoplasmof breast Medications: New norethindrone ac-eth estradiol 0.5-2.5 mg-mcg (Femhrt Low Dose) 1 tab PO QDAY 28 tabs 11RF Changed From conj estrog-medroxyprogest vito 0.45-1.5 mg (Prempro) 1 tab PO QDAY 28 tabs 5RF To conj estrog-medroxyprogest vito 0.45-1.5 mg (Prempro) 1 tab PO QDAY Additional Comments Additional Comments: PATIENT COUNSELING: Breast self exam advised monthly. Exercise advised, moderate intensity aerobic 30 minutes 5x/week or50 minutes 3x/week, muscle strength 2-7 days/week. Calcium 1200mg/Vitamin d 1000 mg recommended daily for bone health. Colorectal cancer screening for low risk women recommended at age 50-75 years. Tests include colonoscopy every 10 years, or flexible sigmoidoscopy or double contrast BE or CT colonography every 5 years or FOBT or FIT yearly. Screening for increased risk individuals (personal and/or family and/or genetic history of certain colon polyps, adenomas, cancers, FAP, HNPCC, inflammatory bowel disease, ulcerative colitis, Crohn's) should start earlier (at age 10-12 years for FAP, at 20-25 years old or 10 years before the youngest family case for HNPCC, 8 years after the onset of pancolitis, 12-15 years after the onset of left sided colitis). Mammogram recommended yearly for lowrisk women age 40-69 years, starting as young as 25 years old for increased risk women (including but not limited to history of chest irradiation, personal and/or family and/or genetic history of breast and/or certain cancers, personal and/or family history of positive genetic testing (eg BRCA 1/2, TP53, PTEN). Nutrition discussed. Advised to reduce sodium, saturated fats and simple carbohydrates. Advised to increase fiber and keep weight normal. Weight loss recommended for 25 kg/m2 < 64 years old and 30 kg/m2 for age > 65 years.. methods discussed. Yearly influenza vaccine recommended unless allergic or prior adverse reaction. Orders Follow Up: 12 Months (annual) Time spent Total time spent on medical discussion: 20 minutes Coding Level of Care Code 55844 Well 40-64 (Est) Diagnoses Encounter for Routine Gynecological Examination Z01.411 Gynecological examination findings: abnormal findings PRESENT Bilateral fibrocystic breast disease (FCBD) N60.12; N60.11 Menopause syndrome N95.1 Screening breast examination Z12.39 Postmenopausal HRT (hormone replacement therapy) Z79.890 Time Spent (min) 25 Comment will change away from Prempro <Electronically signed by Nixon Hunter II, MD> 03/19/21 1306 Name Value Range Interpretation Code Description Data La rce(s) Supporting Document(s) Procedure Social History Code Duration Value Status Description Data Source(s ) 07/25/2020 08:15:00 AM EST Current every day smoker co mpleted Current every day smoker [facility] Smoking 07/25/2020 07:15:00 AM EST Current every day smoker co mpleted Current every day smoker [facility] Vital Signs ID Date Data Source UNK Name Value Range Interpretation Code Description Data Source(s) Systolic blood pressure 128 mm[Hg] 128 mm[Hg] M SUNDAY ([facility], ) Diastolic blood pressure 84 mm[Hg] 84 mm[Hg] MARGARITA ([facility], ) Body height 63 [in_i] 63 [in_i] MEDENT ([facility]) 5'3" Body weight 115.00 [lb_av] 115.00 [lb_av] [facility] Body mass index (BMI) [Ratio] 20.4 kg/m2 20.4 k g/m2 [facility] ([facility]) [place] body weight 115 [lb_av] 115 [lb_av] [facility] ([facility] Body weight 52.164 kg 52.164 kg [facility] ([facility]) Body surface area Derived from formula 1.53 m2 1.53 m2 [facility] ([facility])
--- OUTSIDE RECORDS SUMMARY | 2021-07-27 06:58 | CCD | Continuity of Care Document ---
Author Author Cristóbal MELÉNDEZ [facility] Organization Unknown Address [address], [address] [place] [address] Phone [phone] Care Team Providers Care Group Product Manager Name Role Phone Nixon Hunter M.D. [facility] [phone] Problems Description No Active Problems Social History [...] lb BMI (Body Mass Index) 20.4 kg/m2 [place] Body Weight 115 lb Weight 52.164 kg BSA (Body Surface Area) 1.53 m2 Results Description No Information Available Procedures Description No Information Available Medical Devices [...] Description No Information Available Referrals Refer to Dr Reason for Referral Status Appt Date Antolin Magdaleno M.D. POSITIVE COLOGUARD Scheduled 06/15/2021 [facility] [address], [address] [place] [address] [phone]
[2021-07-27] MEDS ORDERED: LIDOCAINE 2% 100MG/5ML SDV (FOR ANES.) As Ordered ONE (08:04)
[2021-07-27] MEDS ORDERED: propofoL 200 MG/20 ML VIAL As Ordered ONE (08:04)
--- NOTE | 2021-07-27 08:45 | ROOR ---
Patient Name: Cristóbal Pearl Procedure Date: 07/27/2021 8:04 AM Date of : 1960 Age: 61 Room: [facility] Gender: Female Note Status: Finalized Procedure: Colonoscopy Indications: Screening for colorectal malignant neoplasm, Incidental - Positive Cologuard test Providers: Antolin Magdaleno MD Referring MD: Nixon Hunter MD Requesting Provider: Medicines: Monitored Anesthesia Care Complications: No immediate complications. Procedure: Pre-Anesthesia Assessment: - Prior to the procedure, a History and Physical was performed, and patient medications and allergies were reviewed. The patient is competent. The risks and benefits of the procedure and the sedation options and risks were discussed with the patient. All questions were answered and informed consent was obtained. Patient identification and proposed procedure were verified by the physician, the nurse and the anesthesiologist in the procedure room. Mental Status Examination: alert and oriented. Airway Examination: normal oropharyngeal airway and neck mobility. Respiratory Examination: clear to auscultation. CV Examination: normal. Prophylactic Antibiotics: The patient does not require prophylactic antibiotics. Prior Anticoagulants: The patient has taken no previous anticoagulant or antiplatelet agents. ASA Grade Assessment: II - A patient with mild systemic disease. After reviewing the risks and benefits, the patient was deemed in satisfactory condition to undergo the procedure. The anesthesia plan was to use monitored anesthesia care (MAC). Immediately prior to administration of medications, the patient was re-assessed for adequacy to receive sedatives. The heart rate, respiratory rate, oxygen saturations, blood pressure, adequacy of pulmonary ventilation, and response to care were monitored throughout the procedure. The physical status of the patient was re-assessed after the procedure. The Colonoscope was introduced through the anus and advanced to the cecum, identified by appendiceal orifice and ileocecal valve. The colonoscopy was performed without difficulty. The patient tolerated the procedure well. The quality of the bowel preparation was good. The ileocecal valve, appendiceal orifice, and rectum were photographed. Scope insertion time was 3 minutes. Scope withdrawal time was 12 minutes. The total duration of the procedure was 15 minutes. Findings: The perianal and digital rectal examinations were normal. Three sessile polyps were found in the recto-sigmoid colon and descending colon. The polyps were 3 to 5 mm in size. These polyps were removed with a jumbo cold forceps. Resection and retrieval were complete. Verification of patient identification for the specimen was done by the physician and nurse using the patient's name, date and medical record number. Estimated blood loss was minimal. Non-bleeding external and internal hemorrhoids were found during retroflexion. The hemorrhoids were medium-sized. The colon (entire examined portion) was moderately tortuous. Advancing the scope required withdrawing and reinserting the scope. Impression: - Three 3 to 5 mm polyps at the recto-sigmoid colon and in the descending colon, removed with a jumbo cold forceps. Resected and retrieved. - Non-bleeding external and internal hemorrhoids. - Tortuous colon. Recommendation: - Patient has a contact number available for emergencies. The signs and symptoms of potential delayed complications were discussed with the patient. Return to normal activities tomorrow. Written discharge instructions were provided to the patient. - High fiber diet. - Continue present medications. - Await pathology results. - Repeat colonoscopy in 5-10 years for surveillance based on pathology results. - Telephone GI clinic for pathology results in 2 weeks. - Return to primary care physician. Procedure Code(s): --- Professional --- 55163, Colonoscopy, flexible; with biopsy, single or multiple Diagnosis Code(s): --- Professional --- Z12.11, Encounter for screening for malignant neoplasm of colon K63.5, Polyp of colon K64.8, Other hemorrhoids Q43.8, Other specified congenital malformations of intestine CPT copyright 2019 [employer]. All rights reserved. The codes documented in this report are preliminary and upon instructor ballroom dancing review may be revised to meet current compliance requirements. Antolin Magdaleno MD Antolin Magdaleno MD 07/27/2021 8:44:47 AM Electronically signed by Antolin Magdaleno MD Number of Addenda: 0 Note Initiated On: 07/27/2021 8:04 AM Estimated Blood Loss: Estimated blood loss was minimal.
[2021-07-27 09:05] VITALS: BP 126/85
== END 2021-07-27 09:19 | disposition home or self-care (01) ==
LOC: M OPP 06:52
PROVIDERS: ATTEND Internal Medicine Gastroenterology
DX: R19.5 Other fecal abnormalities (principal); K63.5 Polyp of colon; Q43.8 Other specified congenital malformations of intestine; K64.8 Other hemorrhoids; Z79.899 Other long term (current) drug therapy; F17.210 Nicotine dependence, cigarettes, uncomplicated

== ENCOUNTER → 2022-05-14 | Outpatient (CLI) | payer OTHER ==
[~2022-05-14] MED LIST changes: -D31000TA2 PO; -NS 1,000 ML IV ONE; +PREM0.452; +VITA100093 PO
== END ==
LOC: M LABSMTC 09:59
PROVIDERS: ATTEND Anesthesiology
DX: Z01.818 Encounter for other preprocedural examination (principal); Z11.52 Encounter for screening for COVID-19

== ENCOUNTER 2022-05-17 06:15 | Day surgery (SDC) | payer OTHER ==
[~2022-05-17] VITALS: Ht 160 cm; Wt 50.3 kg
[~2022-05-17 06:15] MED LIST changes: +ceFAZolin SOD 2 GM in IV 1 EA IV ONE
[2022-05-17] MEDS ORDERED: LR 1,000 ML IV SCH (06:35)
[2022-05-17] MEDS ORDERED: BACITRACIN OINTMENT 30GM TUBE As Ordered ONE (07:12)
[2022-05-17] MEDS ORDERED: dexameTHASONE 4 MG/ML 1ML VIAL (J1100 PER 1MG) As Ordered ONE (07:12)
[2022-05-17] MEDS ORDERED: ROPIvacaine 0.5% 30ML INJECTION (J2795 PER 1MG) As Ordered ONE (07:12)
[2022-05-17] MEDS ORDERED: LIDOCAINE 2% MDV 20ML VIAL As Ordered ONE (07:13)
[2022-05-17] MEDS ORDERED: BUPIVACAINE HCL 0.5% 30ML VIAL As Ordered ONE (07:13)
[2022-05-17] MEDS ORDERED: NEOSPORIN GU IRRIG 20 ML VIAL As Ordered ONE (07:13)
[2022-05-17] MEDS ORDERED: GENTAMICIN SULF 80MG/2ML VIAL As Ordered ONE (07:17)
[2022-05-17] MEDS ORDERED: LIDOCAINE 2% 100MG/5ML SDV (FOR ANES.) As Ordered ONE (07:22)
[2022-05-17] MEDS ORDERED: fentaNYL 100 MCG/2 ML INJECTION As Ordered ONE ×2 (07:22→09:09)
[2022-05-17] MEDS ORDERED: ONDANSETRON 4MG 2ML VIAL As Ordered ONE (07:22)
[2022-05-17] MEDS ORDERED: MIDAZOLAM INJ 2MG/2ML VIAL (J2250 PER 1MG) As Ordered ONE (07:22)
[2022-05-17] MEDS ORDERED: KETOROLAC 60MG 2ML VIAL As Ordered ONE (07:22)
[2022-05-17] MEDS ORDERED: propofoL 200 MG/20 ML VIAL As Ordered ONE (07:22)
[2022-05-17] MEDS ORDERED: KETAMINE HCL 200 MG/20 ML VIAL As Ordered ONE (07:58)
[2022-05-17] MEDS ORDERED: ACETAMINOPHEN 1000MG 100ML IV BTL (OFIRMEV) (J0131 PER 10MG) As Ordered ONE (08:06)
[2022-05-17] MEDS ORDERED: ePHEDrine SULFATE 25 MG/5 ML(5MG/ML) SYRINGE As Ordered ONE (08:30)
[2022-05-17 10:48] VITALS: BP 135/71
== END 2022-05-17 10:55 | disposition home or self-care (01) ==
LOC: M SDC 06:15
PROVIDERS: ATTEND Podiatrist
DX: M79.671 Pain in right foot (principal); M20.41 Other hammer toe(s) (acquired), right foot; M21.621 Bunionette of right foot; M20.11 Hallux valgus (acquired), right foot; Z87.891 Personal history of nicotine dependence; Z79.899 Other long term (current) drug therapy
CPT/HCPCS: 28285; 28299; 88300; C1713; J0131; J0690; J1100; J1580; J1885; J2250; J2405; J3010

== ENCOUNTER 2023-03-14 08:51 | Day surgery (SDC) | payer OTHER ==
[~2023-03-14] VITALS: Ht 160 cm; Wt 49.2 kg
[~2023-03-14 08:51] MED LIST changes: -PREM0.452; +PREM0.452 PO; +WOMETAB PO
[2023-03-14] MEDS ORDERED: LR 1,000 ML IV SCH (09:05)
[2023-03-14] MEDS ORDERED: LIDOCAINE 2% MDV 20ML VIAL As Ordered ONE (10:11)
[2023-03-14] MEDS ORDERED: GENTAMICIN SULF 80MG/2ML VIAL As Ordered ONE (10:11)
[2023-03-14] MEDS ORDERED: fentaNYL 100 MCG/2 ML INJECTION As Ordered ONE (10:18)
[2023-03-14] MEDS ORDERED: ACETAMINOPHEN 1000MG 100ML IV BAG As Ordered ONE (10:18)
[2023-03-14] MEDS ORDERED: MIDAZOLAM INJ 2MG/2ML VIAL As Ordered ONE (10:18)
[2023-03-14] MEDS ORDERED: ONDANSETRON 4MG 2ML VIAL As Ordered ONE (10:19)
[2023-03-14] MEDS ORDERED: propofoL 200 MG/20 ML VIAL As Ordered ONE (10:19)
[2023-03-14] MEDS ORDERED: LIDOCAINE 2% 100MG/5ML SDV (FOR ANES.) As Ordered ONE (10:19)
[2023-03-14] MEDS ORDERED: KETOROLAC 60MG 2ML VIAL As Ordered ONE (11:37)
[2023-03-14 12:25] VITALS: BP 135/74; TEMP 96.6; O2SAT 96
== END 2023-03-14 12:35 | disposition home or self-care (01) ==
LOC: M SDC 08:51
PROVIDERS: ATTEND Podiatrist
DX: T84.84XA Pain due to internal orthopedic prosthetic devices, implants and grafts, initial encounter (principal); M79.671 Pain in right foot; F17.210 Nicotine dependence, cigarettes, uncomplicated; Z79.899 Other long term (current) drug therapy
CPT/HCPCS: 20680; J0131; J0665; J0690; J1100; J1580; J1885; J2250; J2405; J3010